=== PATIENT | female | born 1985 | race American Indian/Alaskan Native ===

== ENCOUNTER 2018-12-16 19:28 | Emergency (ER) | payer MEDICAID, OTHER ==
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
[2018-12-16] MEDS ORDERED: IBUPROFEN PO ONE (22:31)
[2018-12-16] MEDS ORDERED: ZOFRAN ODT PO ONE (22:31)
[2018-12-16] MEDS ORDERED: NORCO 5/325 PO ONE (22:31)
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
[2018-12-17 02:49] VITALS: BP 102/62
== END 2018-12-17 02:48 | disposition home or self-care (01) ==
LOC: ED 19:28
DX: M62.830 Muscle spasm of back (principal); M62.838 Other muscle spasm; Z91.018 Allergy to other foods; Z98.51 Tubal ligation status; Z79.899 Other long term (current) drug therapy; V89.2XXA Person injured in unspecified motor-vehicle accident, traffic, initial encounter; Y93.89 Activity, other specified; Y92.89 Other specified places as the place of occurrence of the external cause; Y99.8 Other external cause status
CPT/HCPCS: 70150; 72040; 72070; 72100; Q0162